=== PATIENT | female | born 1980 | race Caucasian/White ===

== ENCOUNTER 2022-04-22 10:56 | Outpatient (CLI) | payer OTHER, SELFPAY | END 2022-04-22 10:57 | disposition home or self-care (01) | PROVIDERS: PCP Physician Assistant Medical; Visit Provider Physician Assistant Medical | DX: L02.413 Cutaneous abscess of right upper limb (principal) | CPT/HCPCS: 87070 ==

== ENCOUNTER 2022-06-03 08:32 | Outpatient (CLI) | payer OTHER, SELFPAY | END 2022-06-03 08:33 | disposition home or self-care (01) | LOC: LKVREF 08:34 | PROVIDERS: PCP Physician Assistant Medical; Visit Provider Physician Assistant Medical | DX: Z00.00 Encounter for general adult medical examination without abnormal findings (principal); I10 Essential (primary) hypertension; Z13.6 Encounter for screening for cardiovascular disorders | CPT/HCPCS: 80061 ==

== ENCOUNTER 2023-09-15 11:00 | Outpatient (CLI) | payer OTHER, SELFPAY | END 2023-09-15 11:01 | disposition home or self-care (01) | LOC: LKVREF 11:01 | PROVIDERS: PCP Physician Assistant Medical; Visit Provider Physician Assistant Medical | DX: Z13.29 Encounter for screening for other suspected endocrine disorder (principal) | CPT/HCPCS: 84443 ==

== ENCOUNTER 2024-06-06 14:17 | Outpatient (CLI) | payer OTHER, SELFPAY | END 2024-06-06 14:18 | disposition home or self-care (01) | LOC: NFLDREF 06-10 07:26 | PROVIDERS: PCP Physician Assistant Medical; Referring Provider Physician Assistant Medical; Visit Provider Physician Assistant Medical | DX: R23.3 Spontaneous ecchymoses (principal) | CPT/HCPCS: 80053 ==

== ENCOUNTER 2024-12-28 15:23 | Outpatient (CLI) | payer OTHER, SELFPAY | END 2024-12-28 15:24 | disposition home or self-care (01) | PROVIDERS: PCP Physician Assistant Medical; Visit Provider Physician Assistant Medical | DX: I10 Essential (primary) hypertension (principal); E66.9 Obesity, unspecified; Z68.41 Body mass index [BMI] 40.0-44.9, adult | CPT/HCPCS: 80053; 82306; 82607; 82728 ==